=== PATIENT | female | born 1970 | race African-American/Black ===

== ENCOUNTER → 2018-06-30 | Outpatient (CLI) | payer OTHER ==
--- NOTE | 2018-06-30 08:52 | RAD ---
Right thumb ultrasound, 06/30/2018: HISTORY: Thumb lump The area of clinical concern along the dorsal aspect of the thumb was carefully scanned. Just proximal to the fingernail there is a oval-shaped smooth hypoechoic subcutaneous mass. It measures 11 x 7 x 5 mm. There are predominantly low level internal echoes as well as several small internal echogenic foci. No internal vascularity is evident. IMPRESSION: Superficial smooth mass in the soft tissues along the dorsal aspect of the distal phalanx of the thumb. Diagnostic considerations include an epidermoid inclusion cyst, a ganglion cyst or a foreign body granuloma. A variety of soft tissue neoplasms are less likely considering its lack of demonstrable internal vascularity. Electronically signed by: Chet Ramirez MD (06/30/2018 8:49 AM) [facility]
== END | disposition home or self-care (01) ==
LOC: US 07:30
PROVIDERS: ATTEND Family Medicine
DX: S69.81XD Other specified injuries of right wrist, hand and finger(s), subsequent encounter (principal); X58.XXXD Exposure to other specified factors, subsequent encounter
CPT/HCPCS: 76881